=== PATIENT | female | born 1960 | race Caucasian/White ===

== ENCOUNTER 2017-12-02 13:22 | Emergency (ER) | payer SELFPAY ==
[~2017-12-02 13:22] MED LIST: Iopamidol 370 76% 125 ML VIAL FS ONE; Sodium Chloride 0.9% 100 ML BAG ONE
[2017-12-02] MEDS ORDERED: Dexamethasone 10 MG/ML VIAL ONE (13:46)
[2017-12-02 13:51] LABS: #Basophils 0.1 thou/uL (0.0-0.2); #Eosinphils 0.2 thou/uL (0.0-0.7); #Monocytes 0.6 thou/uL (0.11-0.59); #Neutrophils 13.3 thou/uL (1.40-6.50); %Basophils 0.9 % (0.0-1.0); %Eosinophils 1.2 % (0.0-10.0); %Lymphocytes 6.5 % (21.0-51.0); %Neutrophils 87.4 % (42.0-75.0); Hemoglobin 14.1 g/dL (12.0-16.0); Mean Corpuscular HGB CONC 33.2 g/dL (32.0-36.0); Mean Corpuscular Hemoglobin 31.1 pg (27.0-31.0); Mean Corpuscular Volume 93.6 fl (81.0-99.0); Mean Platelet Volume 6.7 fL (7.4-10.4); Platelet Count 348 thou/uL (130-400); RBC Distribution Width 12.9 % (11.5-14.5); Red Blood Cell (RBC) Count 4.53 mill/uL (4.20-5.40); White Blood Cell (WBC) Count 15.3 thou/uL (4.8-10.8)
[2017-12-02 14:06] LABS: pH (venous) 7.35 (7.35-7.45)
[2017-12-02 14:08] LABS: Base Excess 3.9 mEq/L (-2 - +2); Hemoglobin (Hb) 13.8 g/dL (11.7-16.0)
[2017-12-02 14:09] LABS: ALT (SGPT) 34 U/L (8-55); AST (SGOT) 18 U/L (5-34); Albumin 4.3 g/dL (3.5-5.0); Alkaline Phosphatase 69 U/L (40-150); Anion Gap 16 mmol/L (10-20); BUN (Urea Nitrogen) 7 mg/dL (9.8-20.1); Bilirubin, Total 0.4 mg/dL (0.2-1.2); Calc. Creatinine Clearance 0 mL/min (70-130); Calcium 9.5 mg/dL (7.8-10.44); Carbon Dioxide 27 mmol/L (22-29); Chloride 103 mmol/L (98-107); Estimated GFR-MDRD 89; Glucose 120 mg/dL (70-105); Potassium 4.1 mmol/L (3.5-5.1); Protein, Total 6.3 g/dL (6.0-8.3); Sodium 142 mmol/L (136-145)
[2017-12-02 14:10] LABS: Troponin I Less than 0.010 ng/mL (< 0.028)
[2017-12-02 14:15] LABS: CKMB 1.5 ng/mL (0-6.6)
[2017-12-02] MEDS ORDERED: Magnesium Sulfate 2 GM/NS 0.9% 50 ML BAG ONE (14:30)
--- NOTE | 2017-12-02 14:49 | RAD ---
AP CHEST: Indication: Dyspnea. Comparison: 08-24-17 FINDINGS: Chronic lung changes are stable. Mild cardiomegaly persists. No airspace consolidation, pleural effus ion or pneumothorax is evident. No acute osseous abnormality is evident. IMPRESSION: No acute cardiopulmonary abnormality. POS: [facility]
[2017-12-02] MEDS ORDERED: MORPHINE 10 MG/ML SYRINGE ONE (16:11)
[2017-12-02] MEDS ORDERED: diphenhydrAMINE 50 MG/ML VIAL ONE (16:35)
[2017-12-02] MEDS ORDERED: Diazepam 5 MG TAB ONE (17:52)
[2017-12-02] MEDS ORDERED: Ibuprofen 800 MG TAB ONE (18:10)
--- NOTE | 2017-12-02 18:51 | CT ---
CT CHEST WITH IV CONTRAST CT ABDOMEN AND PELVIS WITH IV CONTRAST Date: 12-02-17 History: Left sided pain radiating from beneath the breast and into the abdominal region. Comparison: None available. FINDINGS: CT THORAX: There is a 7 mm pulmonary nodule in the left upper lobe. There is an approximately 7 mm pleural based nodular density along the minor fissure on the right. There is an irregular pulmonary nodule seen in the anterior aspect of the right middle lobe measuring 4 mm. There are emphysematous changes seen bi laterally. There are increased interstitial densities within the lungs bilaterally, probably related to chronic lung changes with slight scattered patchy densities in the region of the lingula and left lung base w hich could be related to infectious or inflammatory process. There is a 3 cm x 3.2 cm left hilar mass. This could represent lymph node. There is question of mild narrowing of the left upper lobe bronchus. No additional enlarged mediastinal or hilar lymph nodes ar e appreciated. There is a tiny nodular density at the right posterolateral aspect of the trachea with adjacent gas d ensity. This likely represent a paratracheal air cyst. Vascular calcifications are seen in the toyin nary arteries as well as involving the thoracic aorta. CT ABDOMEN AND PELVIS: The liver, spleen, pancreas, bilateral adrenal glands, and kidneys demonstrate a normal CT appearance . The urinary bladder is distended and extends to the level of the L5-S1 level superiorly, but otherw ise has a normal appearance. The uterus is not visualized, probably related to prior hysterectomy. There is a small amount of retained fecal material seen throughout the colon. Loops of small bowel ar e normal in caliber. Vascular calcifications are seen in the abdominal aorta and iliac arteries. There is no free fluid, fluid collection, or lymphadenopathy seen in the abdomen or pelvis. IMPRESSION: 1. Left hilar mass like density measuring 3 cm in maximal dimensions. This could be related to lymph adenopathy. However, there is suggestion of slight narrowing of the left upper lobe bronchus at this level, and this may represent a neoplastic process. Pulmonary consultation is recommended. 2. There are emphysematous changes within the lungs bilaterally with scattered interstitial densities probably related to mild chronic lung changes. Minimal patchy densities are seen in the lingula and at the left lung base which may be related to infectious or inflammatory etiology. 3. Nonspecific pulmonary nodules within each upper lobe, largest in the left upper lobe measuring rachael roximately 7 mm. Follow up exam is recommended. 4. No acute findings are seen in the abdomen or pelvis. 5. Prominent distention of the urinary bladder. 6. Hysterectomy. 7. Atherosclerotic vascular calcifications. POS: [facility]
== END 2017-12-02 18:42 | disposition home or self-care (01) ==
LOC: MADERS 13:22
DX: J18.9 Pneumonia, unspecified organism (principal); J44.1 Chronic obstructive pulmonary disease with (acute) exacerbation; F41.9 Anxiety disorder, unspecified; F32.9 Major depressive disorder, single episode, unspecified; F17.210 Nicotine dependence, cigarettes, uncomplicated; K21.9 Gastro-esophageal reflux disease without esophagitis; Z79.899 Other long term (current) drug therapy
CPT/HCPCS: 71045; 71260; 74177; 80053; 82553; 82805; 83880; 84484; 85025; 85379; 96365; 96375; J1100; J1200; J2270; J3475; J7050; J7620

== ENCOUNTER 2018-10-08 02:32 | Emergency (ER) | payer SELFPAY ==
[2018-10-08] MEDS ORDERED: Doxycycline 100 MG CAP ONE (03:14)
[2018-10-08] MEDS ORDERED: predniSONE 20 MG TAB ONE (03:14)
--- NOTE | 2018-10-08 08:40 | RAD ---
CHEST PA AND LATERAL: HISTORY: A 58-year-old female with a history of dyspnea. COMPARISON: 08/01/2018, 08/25/2017. FINDINGS: Severe diffuse bone demineralization with numerous collapsed thoracic and lumbar vertebral bodies wit h numerous vertebroplasty changes. There are increased linear interstitial markings noted bilaterall y. There is some nodular fullness in the left hilar region raising concern for some hilar adenopathy or underlying pulmonary mass. This is more prominent than on the prior 08/25/2017 study. The prior chest CT scan of 12/02/2017 demonstrated the possibility of some left hilar adenopathy or mass. I woever ld recommend consideration for a nonemergent followup chest CT scan with IV contrast for further asse ssment to assess for potential growth. On the lateral view, there appears to be some minimal anterio r pleural-based parenchymal change which was not present on the prior study. This is nonspecific. IMPRESSION: Extensive chronic changes and hyperinflation Nodular fullness in the left perihilar region concernin g for pulmonary mass and/or adenopathy. Small triangular-shaped pleural-based parenchymal density ad jacent to the anterior chest on the lateral view, nonspecific. Followup chest CT scan with IV contra st on a nonemergent basis is recommended. Findings were discussed with Dr. Kwan at approximately 8:00 a.m. CODE CR POS: OFF
== END 2018-10-08 06:30 | disposition home or self-care (01) ==
LOC: MADERS 02:32
DX: J44.1 Chronic obstructive pulmonary disease with (acute) exacerbation (principal); F17.210 Nicotine dependence, cigarettes, uncomplicated; F41.9 Anxiety disorder, unspecified; F32.9 Major depressive disorder, single episode, unspecified; Z79.51 Long term (current) use of inhaled steroids; Z71.6 Tobacco abuse counseling; Z79.891 Long term (current) use of opiate analgesic; Z79.899 Other long term (current) drug therapy
CPT/HCPCS: 71046; 99406; J7506; J7620

== ENCOUNTER 2019-02-15 09:09 | Emergency (ER) | payer SELFPAY ==
[2019-02-15] MEDS ORDERED: Magnesium Sulfate 2 GM/NS 0.9% 50 ML BAG ONE (09:31)
--- NOTE | 2019-02-15 09:43 | RAD ---
RADIOGRAPH CHEST 1 VIEW: DATE: 02/15/2019 TIME: 9:36 AM HISTORY: Dyspnea, hypoxia, and wheezing in 58-year-old female COMPARISON: 10/08/2018 FINDINGS: The previously mentioned left infrahilar opacity is no longer visualized, perhaps partially obscured by the left upper cardiac border. There are diffuse prominent interstitial markings bilaterally. No consolidation or cardiomegaly. Vertebroplasty cement in multiple thoracic and lumbar vertebral bodies . No consolidation. Hyperinflation suggestive of COPD. No pneumothorax. IMPRESSION: 1. Diffusely prominent interstitial markings, chronic versus acute. Favor chronic. 2. Emphysema.
[2019-02-15 10:00] LABS: ALT (SGPT) 26 U/L (8-55); AST (SGOT) 19 U/L (5-34); Albumin 3.9 g/dL (3.5-5.0); Alkaline Phosphatase 69 U/L (40-150); Anion Gap 12 mmol/L (10-20); BUN (Urea Nitrogen) 13 mg/dL (9.8-20.1); Bilirubin, Total 0.2 mg/dL (0.2-1.2); Calc. Creatinine Clearance 0 mL/min (70-130); Calcium 8.8 mg/dL (7.8-10.44); Carbon Dioxide 30 mmol/L (22-29); Chloride 104 mmol/L (98-107); Estimated GFR-MDRD 86; Globulin 2.4 g/dL (2.4-3.5); Glucose 126 mg/dL (70-105); Potassium 3.7 mmol/L (3.5-5.1); Protein, Total 6.3 g/dL (6.0-8.3); Sodium 142 mmol/L (136-145)
[2019-02-15 10:10] LABS: #Basophils 0.1 thou/uL (0.0-0.2); #Eosinphils 0.3 thou/uL (0.0-0.7); #Lymphocytes 1.9 thou/uL (1.20-3.40); #Neutrophils 11.4 thou/uL (1.40-6.50); %Basophils 0.8 % (0.0-1.0); %Eosinophils 2.3 % (0.0-10.0); %Lymphocytes 12.9 % (21.0-51.0); %Monocytes 6.5 % (0.0-10.0); %Neutrophils 77.5 % (42.0-75.0); Hemoglobin 10.7 g/dL (12.0-16.0); Mean Corpuscular HGB CONC 30.8 g/dL (32.0-36.0); Mean Corpuscular Hemoglobin 26.9 pg (27.0-31.0); Mean Corpuscular Volume 87.4 fL (78.0-98.0); Mean Platelet Volume 6.8 fL (7.4-10.4); Platelet Count 349 thou/uL (130-400); RBC Distribution Width 15.8 % (11.5-14.5); Red Blood Cell (RBC) Count 3.97 mill/uL (4.20-5.40); White Blood Cell (WBC) Count 14.7 thou/uL (4.8-10.8)
[2019-02-15] MEDS ORDERED: Azithromycin 500 MG VIAL ONE (10:38)
== END 2019-02-15 12:34 | disposition short-term general hospital (02) ==
LOC: MADERS 09:09
DX: J44.1 Chronic obstructive pulmonary disease with (acute) exacerbation (principal); F41.9 Anxiety disorder, unspecified; F32.9 Major depressive disorder, single episode, unspecified; F17.210 Nicotine dependence, cigarettes, uncomplicated
CPT/HCPCS: 36415; 71045; 80053; 83880; 85025; 94640; 96365; 96367; J0456; J3475; J7050; J7620